=== PATIENT | male | born 1945 | race Hispanic/Latino ===

== ENCOUNTER 2020-02-17 02:56 | Inpatient (IN) | payer MEDICARE, OTHER ==
[2020-02-17] MEDS ORDERED: hydrALAZINE 20 MG/ML VIAL SLOW IVP SCH (03:45)
[2020-02-17 04:10] LABS: #Basophils 0.1 thou/uL (0.0-0.2); #Eosinphils 0.2 thou/uL (0.0-0.7); #Lymphocytes 1.8 thou/uL (1.20-3.40); #Monocytes 0.9 thou/uL (0.11-0.59); #Neutrophils 9.7 thou/uL (1.40-6.50); %Basophils 0.7 % (0.0-1.0); %Eosinophils 1.2 % (0.0-10.0); %Lymphocytes 14.1 % (21.0-51.0); %Monocytes 7.2 % (0.0-10.0); %Neutrophils 76.7 % (42.0-75.0); Hemoglobin 15.7 g/dL (14.0-18.0); Mean Corpuscular Hemoglobin 33.8 pg (27.0-31.0); Mean Corpuscular Volume 96.6 fL (78.0-98.0); Mean Platelet Volume 7.6 fL (7.4-10.4); Platelet Count 221 thou/uL (130-400); RBC Distribution Width 11.7 % (11.5-14.5); Red Blood Cell (RBC) Count 4.65 mill/uL (4.70-6.10); White Blood Cell (WBC) Count 12.7 thou/uL (4.8-10.8)
[2020-02-17 04:31] LABS: ALT (SGPT) 22 U/L (8-55); AST (SGOT) 19 U/L (5-34); Albumin 4.2 g/dL (3.4-4.8); Alkaline Phosphatase 131 U/L (40-110); Anion Gap 16 mmol/L (10-20); BUN (Urea Nitrogen) 14 mg/dL (8.4-25.7); Bilirubin, Total 0.5 mg/dL (0.2-1.2); Calc. Creatinine Clearance 0 mL/min (70-130); Calcium 8.9 mg/dL (7.8-10.44); Carbon Dioxide 25 mmol/L (23-31); Chloride 104 mmol/L (98-107); Estimated GFR-MDRD 64; Globulin 3.8 g/dL (2.4-3.5); Glucose 131 mg/dL (83-110); Potassium 3.6 mmol/L (3.5-5.1); Sodium 141 mmol/L (136-145)
[2020-02-17] MEDS ORDERED: Vancomycin 1 GM/200 ML BAG ONE (04:38)
[2020-02-17 04:53] LABS: CKMB 2.1 ng/mL (0-6.6)
[2020-02-17] MEDS ORDERED: Aspirin 325 MG TAB ONE (04:54)
[2020-02-17] MEDS ORDERED: Morphine 4 MG/ML VIAL ONE (04:54)
[2020-02-17] MEDS ORDERED: Acetaminophen 650 MG Suppository PR PRN (05:28)
[2020-02-17] MEDS ORDERED: Acetaminophen 325 MG TAB PO PRN (05:28)
[2020-02-17] MEDS ORDERED: Calcium Carbonate 500 MG ChewTAB PO PRN (05:28)
[2020-02-17] MEDS ORDERED: Ondansetron ODT 4 MG TAB PO PRN (05:28)
[2020-02-17] MEDS ORDERED: HYDROcodone/Acetaminophen 5/325 mg Tablet PO PRN (05:28)
[2020-02-17] MEDS ORDERED: Ondansetron PF 4 MG/2 ML Vial IVP PRN (05:28)
--- NOTE | 2020-02-17 05:37 | PDOC.HHP ---
Hospitalist HPI - History of Present Illness left leg pain History of Present Illness: Case of an 74y/o male with no hx of chronic condition who comes to hospital due to left foot pain. patient refers he was on his usual state of health until 2-3 days ago when he notice some erythema and pain coming from his leg foot. this kept progressing until today when pain was 8/10 and pt decided to come for evaluation. patient denies any fever chills malaise or purulent secretions. of note when patient arrived at the ED his b/p was in the 230s, patient denies any chest pain palpitations sob or diaphoresis. Hospitalist ROS - Review of Systems All other systems reviewed; all pertinent +/- noted in HPI/Subj Hospitalist History - Past Surgical History Past Surgical History: reports: no pertinent history Other Surgical History: l finger - Family History Family History: reports: no pertinent history - Social History Smoking Status: Former smoker Alcohol: reports: None Drugs: reports: none Living Situation: With Family - Exam General Appearance: NAD, awake alert Eye: PERRL, anicteric sclera ENT: normocephalic atraumatic, no oropharyngeal lesions Neck: supple, symmetric, no JVD Heart: RRR, no murmur, no gallops, no rubs Respiratory: CTAB, no wheezes, no rales, no ronchi Gastrointestinal: soft, non-tender, non-distended, normal bowel sounds Extremities: no cyanosis, no clubbing, no edema Extremities - other findings: L leg erythema, increase temp, tender to palpation Skin: normal turgor, no lesions, no rashes Neurological: cranial nerve grossly intact, normal sensation to touch, no weakness Musculoskeletal: normal tone, normal strength, no muscle wasting Psychiatric: normal affect, normal behavior, A&O x 3 Hospitalist Results - Labs Result Diagrams: 02/17/20 03:53 02/17/20 03:53 Lab results: WBC 12.7 thou/uL (4.8-10.8) H 02/17/20 03:53 Hgb 15.7 g/dL (14.0-18.0) 02/17/20 03:53 Hct 44.9 % (42.0-52.0) 02/17/20 03:53 MCV 96.6 fL (78.0-98.0) 02/17/20 03:53 Plt Count 221 thou/uL (130-400) 02/17/20 03:53 Neutrophils % 76.7 % (42.0-75.0) H 02/17/20 03:53 Sodium 141 mmol/L (136-145) 02/17/20 03:53 Potassium 3.6 mmol/L (3.5-5.1) 02/17/20 03:53 Chloride 104 mmol/L (98-107) 02/17/20 03:53 Carbon Dioxide 25 mmol/L (23-31) 02/17/20 03:53 BUN 14 mg/dL (8.4-25.7) 02/17/20 03:53 Creatinine 1.13 mg/dL (0.7-1.3) 02/17/20 03:53 Glucose 131 mg/dL (83-110) H 02/17/20 03:53 Lactic Acid 2.7 mmol/L (0.5-2.2) H 02/17/20 04:01 Calcium 8.9 mg/dL (7.8-10.44) 02/17/20 03:53 Total Bilirubin 0.5 mg/dL (0.2-1.2) 02/17/20 03:53 AST 19 U/L (5-34) 02/17/20 03:53 ALT 22 U/L (8-55) 02/17/20 03:53 Alkaline Phosphatase 131 U/L (40-110) H 02/17/20 03:53 CK-MB (CK-2) 2.1 ng/mL (0-6.6) 02/17/20 03:53 Troponin I 0.030 ng/mL (< 0.028) H 02/17/20 03:53 B-Natriuretic Peptide 117.8 pg/mL (0-100) H 02/17/20 03:53 Serum Total Protein 8.0 g/dL (5.8-8.1) 02/17/20 03:53 Albumin 4.2 g/dL (3.4-4.8) 02/17/20 03:53 Hospitalist H&P A/P - Problem (1) Sepsis Code(s): A41.9 - SEPSIS, UNSPECIFIED ORGANISM Status: Acute (2) Cellulitis of foot, left Code(s): L03.116 - CELLULITIS OF LEFT LOWER LIMB Status: Acute (3) Hypertensive urgency Code(s): I16.0 - HYPERTENSIVE URGENCY Status: Acute (4) Elevated troponin Code(s): R77.8 - OTHER SPECIFIED ABNORMALITIES OF PLASMA PROTEINS Status: Acute - Plan Plan: Case of an 74y/o male with apparent no pmhx, but also does not visit medics who presents with l leg cellulites and hypertensive urgency sepsis secondary left leg cellulitis - elevated wbc 12.7 + LA 2.7 with cellulits of leg leg - given 1 dose of vancomycin at ed will continue with ancef, no purulet secretion noted - sepsis bundles started. blood cultures were taken, ivfs started and broad spectrum abx given - pain management - continue ivfs -f/u cultures - f/u vascular us hypertensive urgency - starting lisinopril and amlodipine, adjust as necessary - hydralazine prn - might have a pain component elevated troponin - likely demand ischemia - will trend
[2020-02-17] MEDS ORDERED: CEFAZOLIN 1 GM in Sodium Chloride 0.9% 100 ML IVPB SCH (06:00)
[2020-02-17] MEDS ORDERED: CEFAZOLIN 1 GM VIAL ONE (06:09)
[2020-02-17] MEDS: Sodium Chloride 0.9% 1,000 ML IV SCH ×2 (06:18→17:51)
[2020-02-17] MEDS: ceFAZolin 1 GM/D5W 1 GM in Premix Bag 1 BAG IVPB SCH ×2 (06:18→13:49)
[2020-02-17 07:18] LABS: Lactic Acid 2.2 mmol/L (0.5-2.2)
[2020-02-17 07:26] LABS: Troponin I 0.029 ng/mL (< 0.028)
--- NOTE | 2020-02-17 07:38 | ULT ---
PRELIMINARY REPORT/[facility]/EMERGENCY AFTER HOURS PROCEDURE EXAM: US Duplex left Lower Extremity Veins. CLINICAL HISTORY: LLE pain TECHNIQUE: Real-time ultrasound scan of the veins of the left lower extremity with color Doppler flow, spectral waveform analysis and compression. COMPARISON: None provided. FINDINGS: DEEP VEINS: The common femoral, femoral, and popliteal veins are echolucent and compressible. These vessels demon strate respiratory variation and augmentation. There is normal color Doppler flow throughout. The visualized calf veins are also patent. SUPERFICIAL VEINS: The visualized greater saphenous vein is patent. SOFT TISSUES: No popliteal fossa cyst or other abnormalities. IMPRESSION: No deep venous thrombosis in the left lower extremity. ELECTRONICALLY SIGNED BY: Sandeep Harmon MD Feb 17, 2020 4:19:00 AM CDT This report is intended for review by the ordering physician only, in accordance of law. If you recei ve this report in error, please call [facility] at [phone]. FINAL REPORT LEFT LOWER EXTREMITY VENOUS DOPPLER ULTRASOUND: 02/17/2020 HISTORY: Pain, assess for DVT. FINDINGS: Left lower extremity venous structures assessed with Doppler interrogation including color flow and s pectral analysis. Left common femoral vein, greater saphenous vein, profunda femoral vein, femoral vein, popliteal vein , and posterior tibial vein are patent. No evidence for DVT. IMPRESSION: No evidence for deep venous thrombosis of the left lower extremity. This report is in agreement with the preliminary report by [facility]. Transcribed Date/Time: 02/17/2020 8:22 AM
[2020-02-17] MEDS ORDERED: Ondansetron PF 4 MG/2 ML Vial ONE (08:49)
[2020-02-17] MEDS ORDERED: Lisinopril 10 MG TAB ONE (09:17)
[2020-02-17] MEDS ORDERED: Amlodipine 5 MG TAB ONE (09:17)
[2020-02-17] MEDS ORDERED: Enoxaparin Sodium 40 MG/0.4 ML SYRINGE ONE (09:21)
[2020-02-17 09:23] LABS: Lactic Acid 4.2 mmol/L (0.5-2.2)
[2020-02-17] MEDS: Amlodipine 5 MG TAB PO SCH (10:00)
[2020-02-17] MEDS: Lisinopril 10 MG TAB PO SCH (10:01)
[2020-02-17] MEDS: Enoxaparin Sodium 40 MG/0.4 ML SYRINGE SC SCH (10:01)
[2020-02-17 10:34] LABS: Troponin I 0.019 ng/mL (< 0.028)
[2020-02-17 13:21] VITALS: BMI 28.0
[2020-02-17 15:59] LABS: SARS-CoV-2 MS2 Positive; SARS-CoV-2 N Gene Negative; SARS-CoV-2 S Gene Negative; SARS-CoV-2 by NAA Not Detected (NotDetected); SARS-CoV-2 orf1ab Negative
--- NOTE | 2020-02-17 18:27 | PDOC.HOSPP ---
- Subjective Encounter Date: 02/17/20 Encounter Time: 18:25 Subjective: f/u for sepsis due to L foot cellulitis on current Ancef and one dose of Vancomycin. States no prior similar hx, insect bites or direct trauma. - Objective Vital Signs & Weight: Vital Signs (12 hours) Temp Pulse Resp BP BP Pulse Ox 02/17/20 15:35 97.9 F 72 16 137/74 96 02/17/20 13:05 97.8 F 75 16 137/67 97 02/17/20 10:01 157/78 H 02/17/20 10:00 80 157/78 H Weight Weight 168 lb 11.2 oz Result Diagrams: 02/17/20 03:53 02/17/20 03:53 Additional Labs: Laboratory Tests 02/17/20 02/17/20 02/17/20 03:53 04:01 05:40 Lactic Acid 2.7 H B-Natriuretic Peptide 117.8 H SARS-CoV-2 (PCR) Not Detected 02/17/20 02/17/20 02/17/20 05:47 06:50 08:51 Lactic Acid 3.3 H 2.2 4.2 H* B-Natriuretic Peptide SARS-CoV-2 (PCR) Radiology Reviewed by me: Yes (LLE sono - neg for DVT) EKG Reviewed by me: Yes (Tele - SR) Hospitalist ROS - Medication Medications: Active Medications Generic Name Dose Route Start Last Admin Trade Name Freq PRN Reason Stop Dose Admin Amlodipine Besylate 5 mg 02/17/20 09:00 02/17/20 10:00 Amlodipine 5 Mg Tab PO 5 mg DAILY DONAVAN Administration Enoxaparin Sodium 40 mg 02/17/20 09:00 02/17/20 10:01 Enoxaparin Sodium 40 Mg/0.4 Ml Syringe SC 40 mg 0900 DONAVAN Administration Sodium Chloride 1,000 mls @ 100 mls/hr 02/17/20 05:30 02/17/20 17:51 Normal Saline 0.9% IV 1,000 mls .Q10H DONAVAN Administration Cefazolin Sodium/Dextrose 1 gm 50 mls @ 100 mls/hr 02/17/20 06:00 02/17/20 13:49 / Device IVPB 50 mls Q8HR DONAVAN Administration Lisinopril 10 mg 02/17/20 09:00 02/17/20 10:01 Lisinopril 10 Mg Tab PO 10 mg DAILY DONAVAN Administration Ondansetron HCl 4 mg 02/17/20 05:28 02/17/20 08:54 Ondansetron Pf 4 Mg/2 Ml Vial IVP 4 mg Q6H PRN Administration Nausea/Vomiting - Exam General Appearance: NAD, awake alert Eye: PERRL, anicteric sclera ENT: normocephalic atraumatic, no oropharyngeal lesions Neck: supple, symmetric, no JVD, no thyromegaly Heart: RRR, no murmur, no gallops, no rubs, normal peripheral pulses Heart - other findings: S1, S2 Respiratory: CTAB, no wheezes, no rales, no ronchi, normal chest expansion, no tachypnea Gastrointestinal: soft, non-tender, non-distended, normal bowel sounds, no palpable masses Extremities: no cyanosis, 1+ LE edema Extremities - other findings: L foot with erythema distally on dorsum, mild edema, no ulcerations Skin: normal turgor Neurological: cranial nerve grossly intact, no new deficit Musculoskeletal: normal tone, normal strength, no muscle wasting Psychiatric: normal affect, A&O x 3 Hosp A/P (1) Sepsis Code(s): A41.9 - SEPSIS, UNSPECIFIED ORGANISM Status: Acute Plan: Secondary to cellulitis of L foot, continue Vancomycin, add Cefepime 2gm IV BID (2) Cellulitis of foot, left Code(s): L03.116 - CELLULITIS OF LEFT LOWER LIMB Status: Acute Plan: See #1 above (3) Hypertensive urgency Code(s): I16.0 - HYPERTENSIVE URGENCY Status: Acute Plan: Resolving, start Metoprolol 12.5mg BID, serial monitoring (4) Elevated troponin Code(s): R77.8 - OTHER SPECIFIED ABNORMALITIES OF PLASMA PROTEINS Status: Acute Plan: Secondary to demand ischemia in context of HTN urgency (5) CKD (chronic kidney disease), stage II Code(s): N18.2 - CHRONIC KIDNEY DISEASE, STAGE 2 (MILD) Status: Chronic Plan: Avoid nephrotoxic meds and limit contrast exposure - Plan plan discussed w/ family, continue antibiotics, social media designer, out of bed/ambulate Stable overall Continue Vancomycin 1gm IV q12h Cefepime 2gm IV BID Start Metoprolol 12.5mg BID OOB/ambulate AM lab: CMP, CBC
[2020-02-17] MEDS: Cefepime 2 GM in Sodium Chloride 0.9% 100 ML IVPB SCH (21:06)
[2020-02-17] MEDS: Metoprolol Tartrate 25 MG TAB PO SCH (21:07)
[2020-02-17] MEDS: Vancomycin 1 GM in Premix Bag 1 BAG IVPB SCH (21:07)
[2020-02-18] MEDS: Sodium Chloride 0.9% 1,000 ML IV SCH ×3 (05:10→16:09)
[2020-02-18 05:50] LABS: ALT (SGPT) 16 U/L (8-55); AST (SGOT) 17 U/L (5-34); Albumin 3.4 g/dL (3.4-4.8); Alkaline Phosphatase 102 U/L (40-110); Anion Gap 11 mmol/L (10-20); BUN (Urea Nitrogen) 15 mg/dL (8.4-25.7); Bilirubin, Total 0.3 mg/dL (0.2-1.2); Calc. Creatinine Clearance 79 mL/min (70-130); Calcium 8.3 mg/dL (7.8-10.44); Carbon Dioxide 25 mmol/L (23-31); Chloride 110 mmol/L (98-107); Estimated GFR-MDRD 82; Globulin 3.1 g/dL (2.4-3.5); Glucose 106 mg/dL (83-110); Potassium 3.5 mmol/L (3.5-5.1); Protein, Total 6.5 g/dL (5.8-8.1); Sodium 142 mmol/L (136-145)
[2020-02-18 06:52] LABS: Band 8 % (5-11); Eosinophils 4 % (0-10); Hemoglobin 13.3 g/dL (14.0-18.0); Lymphocytes 33 % (21-51); MDiff Complete? YES; Mean Corpuscular HGB CONC 33.7 g/dL (32.0-36.0); Mean Corpuscular Volume 98.1 fL (78.0-98.0); Mean Platelet Volume 8.1 fL (7.4-10.4); Monocytes 13 % (0-10); Neutrophil 42 % (42-75); Platelet Count 209 thou/uL (130-400); RBC Distribution Width 11.7 % (11.5-14.5); Red Blood Cell (RBC) Count 4.02 mill/uL (4.70-6.10); White Blood Cell (WBC) Count 9.2 thou/uL (4.8-10.8)
[2020-02-18] MEDS: Enoxaparin Sodium 40 MG/0.4 ML SYRINGE SC SCH (08:45)
[2020-02-18] MEDS: Amlodipine 5 MG TAB PO SCH (08:46)
[2020-02-18] MEDS: Lisinopril 10 MG TAB PO SCH (08:46)
[2020-02-18] MEDS: Cefepime 2 GM in Sodium Chloride 0.9% 100 ML IVPB SCH ×2 (08:47→20:55)
[2020-02-18] MEDS: HYDROcodone/Acetaminophen 5/325 mg Tablet PO PRN (08:54)
[2020-02-18] MEDS: Metoprolol Tartrate 25 MG TAB PO SCH ×2 (09:04→20:56)
[2020-02-18] MEDS: Vancomycin 1 GM in Premix Bag 1 BAG IVPB SCH (09:45)
[2020-02-18] MEDS ORDERED: Ketorolac Tromethamine 30 MG/ML VIAL IVP PRN (11:47)
--- NOTE | 2020-02-18 11:48 | PDOC.HOSPP ---
- Subjective Encounter Date: 02/18/20 Encounter Time: 11:35 Subjective: f/u for L foot cellulitis on Cefepime/Vancomycin. States some pain in L foot but no drainage or open ulcers. - Objective Vital Signs & Weight: Vital Signs (12 hours) Temp Pulse Resp BP Pulse Ox 02/18/20 11:02 97.9 F 54 L 18 168/77 H 95 02/18/20 07:20 98.3 F 54 L 16 187/86 H 97 02/18/20 03:29 98.7 F 58 L 15 174/80 H 96 Weight Weight 168 lb 11.2 oz I&O: 02/17/20 02/18/20 02/19/20 06:59 06:59 06:59 Intake Total 2400 Balance 2400 Result Diagrams: 02/18/20 04:15 02/18/20 04:15 Additional Labs: Microbiology 02/17/20 04:19 Venous blood - Left Arm Blood Culture - Preliminary Specimen has been received and culture in progress. No Growth to date. 02/17/20 04:01 Venous blood - Right Arm Blood Culture - Preliminary Specimen has been received and culture in progress. No Growth to date. Laboratory Tests 02/17/20 02/17/20 02/17/20 03:53 03:53 04:01 WBC 12.7 H Neutrophils % 76.7 H Neutrophils % (Manual) Lactic Acid 2.7 H B-Natriuretic Peptide 117.8 H SARS-CoV-2 (PCR) 02/17/20 02/17/20 02/17/20 05:40 05:47 06:50 WBC Neutrophils % Neutrophils % (Manual) Lactic Acid 3.3 H 2.2 B-Natriuretic Peptide SARS-CoV-2 (PCR) Not Detected 02/17/20 02/18/20 08:51 04:15 WBC Neutrophils % Neutrophils % (Manual) 42 Lactic Acid 4.2 H* B-Natriuretic Peptide SARS-CoV-2 (PCR) EKG Reviewed by me: Yes (Tele - SR) Hospitalist ROS - Medication Medications: Active Medications Generic Name Dose Route Start Last Admin Trade Name Freq PRN Reason Stop Dose Admin Hydrocodone Bitart/Acetaminophen 1 tab 02/17/20 05:28 02/18/20 08:54 Hydrocodone/Acetaminophen 5/325 Mg Tablet PO 1 tab Q4H PRN Administration Moderate Pain (4-6) Amlodipine Besylate 5 mg 02/17/20 09:00 02/18/20 08:46 Amlodipine 5 Mg Tab PO 5 mg DAILY DONAVAN Administration Enoxaparin Sodium 40 mg 02/17/20 09:00 02/18/20 08:45 Enoxaparin Sodium 40 Mg/0.4 Ml Syringe SC 40 mg 0900 DONAVAN Administration Sodium Chloride 1,000 mls @ 100 mls/hr 02/17/20 05:30 02/18/20 05:10 Normal Saline 0.9% IV 1,000 mls .Q10H DONAVAN Administration Cefepime HCl 2 gm/ Sodium 100 mls @ 200 mls/hr 02/17/20 21:00 02/18/20 08:47 Chloride IVPB 100 mls Q12HR DONAVAN Administration Vancomycin HCl 1 gm/ Device 200 mls @ 200 mls/hr 02/17/20 21:00 02/18/20 09:45 IVPB 200 mls Q12HR DONAVAN Administration Lisinopril 10 mg 02/17/20 09:00 02/18/20 08:46 Lisinopril 10 Mg Tab PO 10 mg DAILY DONAVAN Administration Metoprolol Tartrate 12.5 mg 02/17/20 21:00 02/18/20 09:04 Metoprolol Tartrate 25 Mg Tab PO Not Given BID DONAVAN Ondansetron HCl 4 mg 02/17/20 05:28 02/17/20 08:54 Ondansetron Pf 4 Mg/2 Ml Vial IVP 4 mg Q6H PRN Administration Nausea/Vomiting - Exam General Appearance: NAD, awake alert Eye: PERRL, anicteric sclera ENT: normocephalic atraumatic, no oropharyngeal lesions Neck: supple, symmetric, no JVD, no thyromegaly Heart: RRR, no gallops, no rubs, normal peripheral pulses Heart - other findings: S1, S2 Respiratory: CTAB, no wheezes, no rales, no ronchi, normal chest expansion, no tachypnea Gastrointestinal: soft, non-tender, non-distended, normal bowel sounds, no palpable masses Extremities: no cyanosis, 1+ LE edema Extremities - other findings: L forefoot edema/erythema and TTP, no ulcerations Skin: normal turgor Neurological: cranial nerve grossly intact, no new deficit Musculoskeletal: normal tone, normal strength, no muscle wasting Psychiatric: normal affect, A&O x 3 Hosp A/P (1) Sepsis Code(s): A41.9 - SEPSIS, UNSPECIFIED ORGANISM Status: Acute Plan: Resolved, continue mgmt as outlined in #2 (2) Cellulitis of foot, left Code(s): L03.116 - CELLULITIS OF LEFT LOWER LIMB Status: Acute Plan: Continue Cefepime/Vancomycin, check Uric acid level, add Toradol 30mg IV q6h prn (3) Hypertensive urgency Code(s): I16.0 - HYPERTENSIVE URGENCY Status: Acute Plan: Resolved, BP remains elevated, decrease IVF's, continue Amlodipine/Lisinopril (4) Elevated troponin Code(s): R77.8 - OTHER SPECIFIED ABNORMALITIES OF PLASMA PROTEINS Status: Acute Plan: Likely due to HTN urgency in conjunction with cellulitis (5) CKD (chronic kidney disease), stage II Code(s): N18.2 - CHRONIC KIDNEY DISEASE, STAGE 2 (MILD) Status: Chronic Plan: Overall renal function improved with IVF's, avoid nephrotoxic meds and limit contrast exposure - Plan plan discussed w/ family, continue antibiotics, out of bed/ambulate, DVT proph w/SCDs Stable overall Continue Vancomycin 1gm IV q12h Cefepime 2gm IV BID Monitor BP Decrease IVF's Continue Metoprolol 12.5mg BID, monitor for bradycardia OOB/ambulate AM lab: BMP, Uric acid
[2020-02-18] MEDS ORDERED: Ketorolac Tromethamine 30 MG/ML VIAL IVP SCH (12:00)
[2020-02-18] MEDS ORDERED: FLU VACC QS2020-21(65YR UP)/PF 240 MCG/0.7 ML SYRINGE IM ONE (13:45)
[2020-02-18 20:15] LABS: Vancomycin, Trough 9.8 ug/mL
[2020-02-18] MEDS: Vancomycin HCl 1.25 GM in Sodium Chloride 0.9% 250 ML 250 ML IVPB SCH (22:02)
[2020-02-19] MEDS: hydrALAZINE 20 MG/ML VIAL SLOW IVP PRN ×2 (05:18→13:37)
[2020-02-19] MEDS: HYDROcodone/Acetaminophen 5/325 mg Tablet PO PRN ×2 (05:19→20:26)
[2020-02-19 05:28] LABS: Anion Gap 11 mmol/L (10-20); BUN (Urea Nitrogen) 13 mg/dL (8.4-25.7); Calc. Creatinine Clearance 84 mL/min (70-130); Calcium 8.5 mg/dL (7.8-10.44); Carbon Dioxide 25 mmol/L (23-31); Chloride 107 mmol/L (98-107); Estimated GFR-MDRD 85; Glucose 101 mg/dL (83-110); Potassium 3.7 mmol/L (3.5-5.1); Sodium 139 mmol/L (136-145); Uric Acid 6.3 mg/dL (3.5-7.2)
[2020-02-19] MEDS: Enoxaparin Sodium 40 MG/0.4 ML SYRINGE SC SCH (09:48)
[2020-02-19] MEDS: Metoprolol Tartrate 25 MG TAB PO SCH ×2 (09:48→20:25)
[2020-02-19] MEDS: Amlodipine 5 MG TAB PO SCH (09:49)
[2020-02-19] MEDS: Cefepime 2 GM in Sodium Chloride 0.9% 100 ML IVPB SCH ×2 (09:50→20:25)
[2020-02-19] MEDS: Lisinopril 10 MG TAB PO SCH (09:50)
[2020-02-19] MEDS: Vancomycin HCl 1.25 GM in Sodium Chloride 0.9% 250 ML 250 ML IVPB SCH ×2 (11:21→23:06)
[2020-02-19] MEDS: Sodium Chloride 0.9% 1,000 ML IV SCH (13:46)
[2020-02-19 15:41] LABS: CRP (Inflammatory) 4.18 mg/dL (= or < 0.5); Uric Acid 5.8 mg/dL (3.5-7.2)
[2020-02-20] MEDS ORDERED: hydrALAZINE 25 MG TAB PO SCH (00:30)
[2020-02-20] MEDS: Sodium Chloride 0.9% 1,000 ML IV SCH ×2 (01:26→19:42)
[2020-02-20] MEDS: Amlodipine 5 MG TAB PO SCH (05:03)
--- NOTE | 2020-02-20 08:03 | PDOC.HOSPP ---
- Subjective Encounter Date: 02/19/20 Encounter Time: 11:15 Subjective: Patient up in bed states his pain in the left foot is better compared to yesterday. - Objective Vital Signs & Weight: Vital Signs (12 hours) Temp Pulse Resp BP BP Pulse Ox 02/20/20 07:31 98.2 F 61 18 190/88 H 98 02/20/20 06:27 63 191/68 H 02/20/20 05:03 68 182/86 H 02/20/20 04:00 97.8 F 68 16 182/86 H 95 02/19/20 23:15 62 198/87 H 02/19/20 22:30 63 195/91 H Weight Weight 169 lb I&O: 02/19/20 02/20/20 02/21/20 06:59 06:59 05:59 Intake Total 2360 800 Balance 2360 800 Result Diagrams: 02/18/20 04:15 02/19/20 04:18 Hospitalist ROS - Review of Systems Respiratory: denies: cough, dry, shortness of breath, hemoptysis, SOB with excertion, pleuritic pain, sputum, wheezing, other Cardiovascular: denies: chest pain, palpitations, orthopnea, paroxysmal noc. dyspnea, edema, light headedness, other Gastrointestinal: denies: nausea, vomiting, abdominal pain, diarrhea, cons tipation, melena, hematochezia, other Musculoskeletal: reports: foot pain - Medication Medications: Active Medications Generic Name Dose Route Start Last Admin Trade Name Freq PRN Reason Stop Dose Admin Hydrocodone Bitart/Acetaminophen 1 tab 02/17/20 05:28 02/19/20 20:26 Hydrocodone/Acetaminophen 5/325 Mg Tablet PO 1 tab Q4H PRN Administration Moderate Pain (4-6) Amlodipine Besylate 5 mg 02/17/20 09:00 02/20/20 05:03 Amlodipine 5 Mg Tab PO 5 mg DAILY DONAVAN Administration Enoxaparin Sodium 40 mg 02/17/20 09:00 02/19/20 09:48 Enoxaparin Sodium 40 Mg/0.4 Ml Syringe SC 40 mg 0900 DONAVAN Administration Hydralazine HCl 10 mg 02/17/20 05:28 02/19/20 13:37 Hydralazine 20 Mg/Ml Vial SLOW IVP 10 mg Q4H PRN Administration Hypertension Cefepime HCl 2 gm/ Sodium 100 mls @ 200 mls/hr 02/17/20 21:00 02/19/20 20:25 Chloride IVPB 100 mls Q12HR DONAVAN Administration Sodium Chloride 1,000 mls @ 75 mls/hr 02/18/20 11:54 02/20/20 01:26 Normal Saline 0.9% IV Not Given .[id number] DONAVAN Vancomycin HCl 1.25 gm/ Sodium 250 mls @ 166.667 mls/hr 02/18/20 21:00 02/19/20 23:06 Chloride IVPB 250 mls Q12HR DONAVAN Administration Lisinopril 10 mg 02/17/20 09:00 02/19/20 09:50 Lisinopril 10 Mg Tab PO 10 mg DAILY DONAVAN Administration Metoprolol Tartrate 12.5 mg 02/17/20 21:00 02/19/20 20:25 Metoprolol Tartrate 25 Mg Tab PO 12.5 mg BID DONAVAN Administration Ondansetron HCl 4 mg 02/17/20 05:28 02/18/20 12:05 Ondansetron Odt 4 Mg Tab PO 4 mg Q6H PRN Administration Nausea/Vomiting Ondansetron HCl 4 mg 02/17/20 05:28 02/17/20 08:54 Ondansetron Pf 4 Mg/2 Ml Vial IVP 4 mg Q6H PRN Administration Nausea/Vomiting - Exam Neck: negative: supple, symmetric, no JVD, no thyromegaly, no lymphadenopathy, no carotid bruit, JVD Heart: negative: RRR, no murmur, no gallops, no rubs, normal peripheral pulses, irregular, diminshed peripheral pulses, murmur present, II/IV, III/IV Respiratory: negative: CTAB, no wheezes, no rales, no ronchi, normal chest expansion, no tachypnea, normal percussion, rales, rhonchi, tachypneic, wheezes Gastrointestinal: negative: soft, non-tender, non-distended, normal bowel sounds, no palpable masses, no hepatomegaly, no splenomegaly, no bruit, no guarding, no rigidity, tender to palpation, distended, diminished bowl sounds, voluntary guarding Extremities: 1+ LE edema Extremities - other findings: Left foot more swollen than right Hosp A/P (1) Cellulitis of foot, left Code(s): L03.116 - CELLULITIS OF LEFT LOWER LIMB Status: Acute (2) Hypertensive urgency Code(s): I16.0 - HYPERTENSIVE URGENCY Status: Acute (3) Sepsis Code(s): A41.9 - SEPSIS, UNSPECIFIED ORGANISM Status: Acute - Plan We will continue antibiotics for now. We will also get CRP and uric acid. We will titrate his blood pressure medications for better blood pressure control.
[2020-02-20] MEDS ORDERED: Amlodipine 10 MG TAB PO SCH (09:00)
[2020-02-20] MEDS: Metoprolol Tartrate 25 MG TAB PO SCH ×2 (10:10→21:23)
[2020-02-20] MEDS: Lisinopril 20 MG TAB PO SCH (10:10)
[2020-02-20] MEDS: Enoxaparin Sodium 40 MG/0.4 ML SYRINGE SC SCH (10:12)
[2020-02-20] MEDS ORDERED: Amlodipine 5 MG TAB PO SCH (10:15)
[2020-02-20] MEDS: Vancomycin HCl 1.25 GM in Sodium Chloride 0.9% 250 ML 250 ML IVPB SCH ×2 (12:22→15:01)
[2020-02-20] MEDS: Cefepime 2 GM in Sodium Chloride 0.9% 100 ML IVPB SCH ×2 (12:22→12:23)
--- NOTE | 2020-02-20 15:22 | PDOC.HOSPP ---
- Subjective Encounter Date: 02/20/20 Encounter Time: 15:20 Subjective: Mr. Oliveros is a 74-year-old patient who was admitted to the hospital for cellulitis involving his left foot. He seems to be doing reasonably well on current antibiotic coverage. He had a venous Doppler obtained due to concern for venous thromboembolism and this was a negative study. We will continue antibiotic and I hope to discharge him home within the next 24 hours on oral antibiotics. - Objective Vital Signs & Weight: Vital Signs (12 hours) Temp Pulse Resp BP BP Pulse Ox 02/20/20 12:13 98.2 F 61 17 169/65 H 95 02/20/20 10:11 61 02/20/20 07:31 98.2 F 61 18 190/88 H 98 02/20/20 06:27 63 191/68 H 02/20/20 05:03 68 182/86 H 02/20/20 04:00 97.8 F 68 16 182/86 H 95 Weight Weight 169 lb I&O: 02/19/20 02/20/20 02/21/20 06:59 06:59 05:59 Intake Total 2360 800 Balance 2360 800 Result Diagrams: 02/18/20 04:15 02/19/20 04:18 Radiology Reviewed by me: Yes EKG Reviewed by me: Yes Hospitalist ROS - Review of Systems Constitutional: reports: fever, weakness, malaise Eyes: reports: pain Gastrointestinal: reports: nausea Skin: reports: rash Neurological: reports: weakness - Medication Medications: Active Medications Generic Name Dose Route Start Last Admin Trade Name Freq PRN Reason Stop Dose Admin Hydrocodone Bitart/Acetaminophen 1 tab 02/17/20 05:28 02/19/20 20:26 Hydrocodone/Acetaminophen 5/325 Mg Tablet PO 1 tab Q4H PRN Administration Moderate Pain (4-6) Enoxaparin Sodium 40 mg 02/17/20 09:00 02/20/20 10:12 Enoxaparin Sodium 40 Mg/0.4 Ml Syringe SC 40 mg 0900 DONAVAN Administration Hydralazine HCl 10 mg 02/17/20 05:28 02/19/20 13:37 Hydralazine 20 Mg/Ml Vial SLOW IVP 10 mg Q4H PRN Administration Hypertension Sodium Chloride 1,000 mls @ 75 mls/hr 02/18/20 11:54 02/20/20 01:26 Normal Saline 0.9% IV Not Given .[id number] DONAVAN Cefepime HCl 2 gm/ Sodium 100 mls @ 200 mls/hr 02/20/20 13:00 02/20/20 12:23 Chloride IVPB 100 mls 0100,1300 DONAVAN Administration Vancomycin HCl 1.25 gm/ Sodium 250 mls @ 166.667 mls/hr 02/20/20 14:00 02/20/20 15:01 Chloride IVPB 250 mls 0200,1400 DONAVAN Administration Lisinopril 20 mg 02/20/20 09:00 02/20/20 10:10 Lisinopril 20 Mg Tab PO 20 mg DAILY DONAVAN Administration Metoprolol Tartrate 25 mg 02/20/20 09:00 02/20/20 10:10 Metoprolol Tartrate 25 Mg Tab PO 25 mg BID DONAVAN Administration Ondansetron HCl 4 mg 02/17/20 05:28 02/18/20 12:05 Ondansetron Odt 4 Mg Tab PO 4 mg Q6H PRN Administration Nausea/Vomiting Ondansetron HCl 4 mg 02/17/20 05:28 02/17/20 08:54 Ondansetron Pf 4 Mg/2 Ml Vial IVP 4 mg Q6H PRN Administration Nausea/Vomiting - Exam General Appearance: awake alert Eye: PERRL, anicteric sclera ENT: normocephalic atraumatic, no oropharyngeal lesions, moist mucosa Neck: supple, symmetric, no JVD, no thyromegaly, no lymphadenopathy Heart: RRR, no murmur, no gallops, no rubs, normal peripheral pulses Respiratory: CTAB, no wheezes, no rales, no ronchi, normal chest expansion, no tachypnea, normal percussion Gastrointestinal: soft, non-tender, non-distended, normal bowel sounds, no palpable masses Skin: normal turgor Neurological: cranial nerve grossly intact Musculoskeletal: normal tone Psychiatric: normal affect, normal behavior, A&O x 3, oriented to person, oriented to place, oriented to time Hosp A/P (1) CKD (chronic kidney disease), stage II Code(s): N18.2 - CHRONIC KIDNEY DISEASE, STAGE 2 (MILD) Status: Resolved - Plan old records reviewed/req, continue antibiotics, DVT proph w/lovenox #1. Cellulitis of the left foot. This seems to be improving on current antibiotic. We will keep that going for now. 2. Sepsis secondary to #1 above. This was present on admission but has since resolved.
[2020-02-20] MEDS: HYDROcodone/Acetaminophen 5/325 mg Tablet PO PRN (21:27)
[2020-02-21] MEDS: Cefepime 2 GM in Sodium Chloride 0.9% 100 ML IVPB SCH ×2 (00:12→12:11)
[2020-02-21] MEDS: Vancomycin HCl 1.25 GM in Sodium Chloride 0.9% 250 ML 250 ML IVPB SCH ×2 (02:28→13:43)
[2020-02-21] MEDS ORDERED: Amlodipine 10 MG TAB PO SCH (09:00)
[2020-02-21] MEDS: Enoxaparin Sodium 40 MG/0.4 ML SYRINGE SC SCH (10:12)
[2020-02-21] MEDS: Lisinopril 20 MG TAB PO SCH (10:12)
[2020-02-21] MEDS: Sodium Chloride 0.9% 1,000 ML IV SCH (10:13)
--- NOTE | 2020-02-21 11:32 | PDOC.DS.DS ---
Provider - Provider Date of Admission: 02/17/20 04:51 Date of Discharge: 02/21/20 Admitting Provider: Tony Cordon Primary Care Physician: NO PCP PROVIDER Course - Hospital Course Hospital Course: Mr. Oliveros is a 74-year-old patient who was admitted to the hospital with swelling and erythema involving his left foot. He was felt to have cellulitis involving the foot and he was septic on admission. Cultures were collected and he was placed on empiric IV antibiotics. His cultures has been negative to date and cellulitis appears to have resolved for the most part. He has been hypertensive but was not previously on any antihypertensives. He was placed on Norvasc, lisinopril and hydralazine during this hospitalization with significant improvement in his blood pressure. He has done well during this visit and is being discharged home today. He will complete 5 more days of Keflex. His family will look into getting him a primary care provider on discharge. He had a venous Doppler that did not show any DVT. Resuscitation Status: 02/17/20 05:28 Resuscitation Status Routine Resuscitation Status: FULL: Full Resuscitation - Labs Lab Results: 02/18/20 04:15 02/19/20 04:18 Abnormal Lab Results - Last 48 hrs 02/19/20 15:06: C-Reactive Protein 4.18 H Microbiology - Entire Visit 02/17/20 04:19 Venous blood - Left Arm Blood Culture - Preliminary NO GROWTH AT 48 HOURS 02/17/20 04:01 Venous blood - Right Arm Blood Culture - Preliminary NO GROWTH AT 48 HOURS - Physical Exam Vitals: Vital Signs (12 hours) Temp Pulse Resp BP Pulse Ox 02/21/20 10:12 70 02/21/20 09:00 98.2 F 70 15 193/86 H 98 02/21/20 08:00 98 02/21/20 03:30 98.1 F 51 L 14 164/76 H 96 Weight Weight 171 lb Physical Exam: The patient was seen and examined on the day of discharge. Problem - Problem (1) Sepsis Code(s): A41.9 - SEPSIS, UNSPECIFIED ORGANISM Status: Acute Qualifiers: Sepsis type: sepsis due to unspecified organism Sepsis acute organ dysfunction status: without acute organ dysfunction Qualified Code(s): A41.9 - Sepsis, unspecified organism Plan: This was present on admission but has since resolved. (2) Cellulitis of foot, left Code(s): L03.116 - CELLULITIS OF LEFT LOWER LIMB Status: Acute Plan: This has improved quite a bit. He will complete 5 more days of Keflex at home. (3) CKD (chronic kidney disease), stage II Code(s): N18.2 - CHRONIC KIDNEY DISEASE, STAGE 2 (MILD) Status: Resolved Plan: This likely was acute kidney disease. (4) Hypertensive urgency Code(s): I16.0 - HYPERTENSIVE URGENCY Status: Acute Plan: His blood pressure seems better. - Time spent with Patient (mins): 30 Plan - Discharge Medications Prescriptions: hydrALAZINE HCl [Hydralazine HCl] 25 mg PO Q8HR #30 tablet Cephalexin [Keflex] 500 mg PO Q8HR #21 capsule Amlodipine [Norvasc] 10 mg PO DAILY #30 tab Lisinopril [Zestril] 20 mg PO DAILY #30 tab Home Medications: Medication Instructions Recorded Confirmed Type Amlodipine [Norvasc] 10 mg PO DAILY #30 tab 02/21/20 Rx Cephalexin [Keflex] 500 mg PO Q8HR #21 capsule 02/21/20 Rx Lisinopril [Zestril] 20 mg PO DAILY #30 tab 02/21/20 Rx hydrALAZINE HCl [Hydralazine HCl] 25 mg PO Q8HR #30 tablet 02/21/20 Rx Allergies: No Known Allergies Allergy (Unverified 02/17/20 03:40) - Discharge Instructions Nourishment:: Diabetic Diet Equipment/Supplies:: Not Applicable IV Therapy:: Not Applicable - Follow up Plan Referrals: PROVIDER,NO PCP [Primary Care Provider] - Disposition: HOME Quality - Care Measures CORE MEASURES:: N/A
[2020-02-21 11:52] VITALS: TEMP 98.6
[2020-02-21] MEDS: Metoprolol Tartrate 25 MG TAB PO SCH (11:52)
[2020-02-21] MEDS ORDERED: hydrALAZINE 25 MG TAB PO SCH (12:45)
[2020-02-21 13:48] VITALS: BP 151/78
--- NOTE | 2020-02-27 17:19 | EKG ---
Test Reason : Blood Pressure : / mmHG Vent. Rate : 090 BPM Atrial Rate : 090 BPM P-R Int : 162 ms QRS Dur : 108 ms QT Int : 382 ms P-R-T Axes : 029 -52 092 degrees QTc Int : 467 ms Normal sinus rhythm Left anterior fascicular block Left ventricular hypertrophy with repolarization abnormality Abnormal ECG Left axis deviation Confirmed by ANUJ TORRES, DARRELL Williamson ([id number]), image editor MABEL EPPS ([id number]) on 02/27/2020 5:19:26 PM Referred By: Confirmed By:DARRELL LESLIE MD
== END 2020-02-21 16:00 | disposition home or self-care (01) | DRG 304 ==
LOC: ERS 02:56 → ERHOLD 04:51 → 2NO 12:57
PROVIDERS: ADMIT Internal Medicine; ATTEND Hospitalist
DX: I16.0 Hypertensive urgency (principal); A41.9 Sepsis, unspecified organism; L03.116 Cellulitis of left lower limb; I24.8 Other forms of acute ischemic heart disease; Z20.828 Contact with and (suspected) exposure to other viral communicable diseases; N18.2 Chronic kidney disease, stage 2 (mild); I12.9 Hypertensive chronic kidney disease with stage 1 through stage 4 chronic kidney disease, or unspecified chronic kidney disease; Z23 Encounter for immunization; Z87.891 Personal history of nicotine dependence
CPT/HCPCS: 36415; 36416; 80048; 80053; 80202; 82553; 83605; 83880; 84484; 84550; 85007; 85025; 85027; 86140; 87040; 87635; 90471; 90662; 93005; 96365; 96375; G0008; J0360; J0690; J0692; J1650; J1885; J2270; J2405; J3370; J3490; J7050; Q0162; U0003

== ENCOUNTER 2022-11-22 10:26 | Outpatient (CLI) | payer MEDICARE ==
[2022-11-22 12:56] LABS: #Basophils 0.1 10x3/uL (0.0-0.2); #Eosinphils 0.4 10x3/uL (0.0-0.5); #Monocytes 0.6 10x3/uL (0.0-1.1); #Neutrophils 3.7 10x3/uL (1.5-8.4); %Eosinophils 5.4 % (0.0-6.0); %Lymphocytes 30.6 % (18.0-47.0); %Monocytes 8.2 % (0.0-10.0); %Neutrophils 54.4 % (40.0-75.0); Hemoglobin 14.8 g/dL (13.5-17.5); Mean Corpuscular HGB CONC 34.1 g/dL (32.0-36.0); Mean Corpuscular Hemoglobin 32.7 pg (27.0-33.0); Mean Platelet Volume 10.5 fl (7.4-10.4); Platelet Count 245 10x3/uL (150-450); RBC Distribution Width 12.6 % (11.5-14.5); Red Blood Cell (RBC) Count 4.52 10x6/uL (4.32-5.72); White Blood Cell (WBC) Count 6.9 10x3/uL (3.5-10.5)
== END 2022-11-22 10:27 | disposition home or self-care (01) ==
LOC: LABBT 10:26
PROVIDERS: ATTEND Orthopaedic Surgery Hand Surgery
DX: Z01.818 Encounter for other preprocedural examination (principal); M85.641 Other cyst of bone, right hand
CPT/HCPCS: 85025; 93005; 93010

== ENCOUNTER 2022-11-26 11:43 | Day surgery (SDC) | payer MEDICARE ==
[2022-11-22 11:15] VITALS: BMI 27.4
[2022-11-26] MEDS ORDERED: Bacitracin Zinc Ointment 30 gm TUBE ONE (12:48)
[2022-11-26] MEDS ORDERED: Bupivacaine PF 0.5% 30 ML VIAL ONE (12:48)
[2022-11-26] MEDS ORDERED: Sodium Chloride 0.9% 100 ML ONE (12:56)
[2022-11-26] MEDS ORDERED: CEFAZOLIN 2 GM VIAL ONE (12:56)
[2022-11-26] MEDS ORDERED: fentaNYL 50 mcg/mL 1 mL Vial ONE (13:48)
[2022-11-26] MEDS ORDERED: Ondansetron PF 4 MG/2 ML Vial ONE (14:16)
[2022-11-26] MEDS ORDERED: ePHEDrine Sulfate 50 MG/10 ML VIAL ONE (14:16)
[2022-11-26] MEDS ORDERED: PHENYLEPHRINE-NS 100 MCG/ML 10 ML SYRINGE ONE (14:16)
[2022-11-26] MEDS ORDERED: Glycopyrrolate 0.2 MG/ML 5 ML SYRINGE ONE (14:16)
[2022-11-26] MEDS ORDERED: PROPOFOL 200 MG/20 ML VIAL ONE (14:16)
[2022-11-26] MEDS ORDERED: Lidocaine 1% PF 5 ML VIAL ONE (14:16)
== END 2022-11-26 17:05 | disposition home or self-care (01) ==
LOC: SDC 11:43
PROVIDERS: ATTEND Orthopaedic Surgery Hand Surgery
PROC: 0LB30ZZ Excision of Right Upper Arm Tendon, Open Approach (ICD-10-PCS; principal; 2022-11-26)
PROC: 0LB70ZZ Excision of Right Hand Tendon, Open Approach (ICD-10-PCS; 2022-11-26)
DX: M67.441 Ganglion, right hand (principal); M67.431 Ganglion, right wrist; M67.432 Ganglion, left wrist; D36.10 Benign neoplasm of peripheral nerves and autonomic nervous system, unspecified; I10 Essential (primary) hypertension; Z79.899 Other long term (current) drug therapy
CPT/HCPCS: 25076; 26160; J3010; 88304; 88305; 88341; 88342; J2405; J2704; J3490; S0020